=== PATIENT | female | born 1995 | race Hispanic/Latino ===

== ENCOUNTER → 2017-11-09 | Outpatient (CLI) | payer OTHER | END | disposition home or self-care (01) | LOC: RAH 12:51 | PROVIDERS: ATTEND Internal Medicine | DX: R51 Headache (principal) | CPT/HCPCS: 70551 ==

== ENCOUNTER 2018-09-19 11:28 | Emergency (ER) | payer OTHER ==
[2018-09-19 12:19] LABS: BASOPHILS % (AUTO) 0.4 % (0.0-5.0); EOSINOPHILS % (AUTO) 0.4 % (0.0-8.0); HEMATOCRIT 40.5 % (36-48); LYMPHOCYTES % (AUTO) 27.3 % (21.0-51.0); MEAN CORPUSCULAR HEMOGLOBIN 28.9 pg (27.0-33.0); MEAN CORPUSCULAR HGB CONC 33.6 g/dL (32.0-36.0); MEAN CORPUSCULAR VOLUME 85.8 fL (79-99); MONOCYTES % (AUTO) 9.6 % (3.0-13.0); NEUTROPHILS % (AUTO) 62.3 % (40.0-77.0); PLATELET COUNT (AUTO) 281 K/uL (130-400); RED BLOOD CELL COUNT(AUTO) 4.71 MIL/uL (4.00-5.50); RED CELL DISTRIBUTION WIDTH 13.7 % (11.0-15.5); WHITE BLOOD COUNT (AUTO) 8.2 K/uL (4.8-10.8)
[2018-09-19 12:26] LABS: CREATININE 0.8 mg/dL (0.5-1.5); POTASSIUM 4.3 mmol/L (3.5-5.1)
[2018-09-19 12:30] LABS: HCG,QUAL RESULT NEGATIVE (NEGATIVE)
[2018-09-19 12:31] LABS: ALBUMIN 3.6 g/dL (3.5-5.0); BILIRUBIN,TOTAL 0.2 mg/dL (0.2-1.0); TOTAL PROTEIN, SERUM 8.2 g/dL (6.0-8.3)
[2018-09-19 12:34] LABS: APPEARANCE,URINE Clear (CLEAR); BILIRUBIN,URINE Negative (NEGATIVE); COLOR,URINE Yellow (YELLOW); GLUCOSE, URINE (UA) Negative (NEGATIVE); KETONES,URINE Negative (NEGATIVE); LEUKOCYTE ESTERASE ,URINE Small (NEGATIVE); NITRATE,URINE Negative (NEGATIVE); OCCULT BLOOD,URINE Negative (NEGATIVE); PROTEIN,URINE Negative (NEGATIVE); UROBILINOGEN,URINE 0.2 mg/dL (0.2-1.0)
[2018-09-19 12:38] LABS: BACTERIA,URINE Rare /HPF (None Seen); RBC,URINE 0-1 /HPF (0-1); SQUAMOUS EPITHELIAL CELL,UR Few /HPF (0-2); WBC,URINE 0-1 /HPF (0-1)
[2018-09-19] MEDS ORDERED: HYDROXYZINE HCL 25 MG TABLET ONE (12:42)
[2018-09-19 12:52] LABS: AMPHET/METH SCREEN,URINE NEGATIVE (NEGATIVE); BARBITURATE SCREEN, URINE NEGATIVE (NEGATIVE); BENZODIAZEPINES SCREEN,URINE NEGATIVE (NEGATIVE); CANNABINOID SCREEN,URINE NEGATIVE (NEGATIVE); COCAINE SCREEN,URINE NEGATIVE (NEGATIVE); OPIATE SCREEN,URINE NEGATIVE (NEGATIVE); PHENCYCLIDINE SCREEN,URINE NEGATIVE (NEGATIVE)
== END 2018-09-19 13:41 | disposition home or self-care (01) ==
LOC: EDH 11:28
DX: F41.0 Panic disorder [episodic paroxysmal anxiety] (principal); R20.2 Paresthesia of skin; R11.0 Nausea
CPT/HCPCS: 36415; 70450; 80053; 80305; 81001; 81025; 84484; 85025; 93005

== ENCOUNTER 2019-04-11 12:58 | Emergency (ER) | payer OTHER ==
[2019-04-11 13:24] LABS: BASOPHILS % (AUTO) 0.3 % (0.0-5.0); EOSINOPHILS % (AUTO) 0.1 % (0.0-8.0); HEMATOCRIT 38.8 % (36-48); LYMPHOCYTES % (AUTO) 21.4 % (21.0-51.0); MEAN CORPUSCULAR HEMOGLOBIN 29.6 pg (27.0-33.0); MEAN CORPUSCULAR HGB CONC 34.4 g/dL (32.0-36.0); MEAN CORPUSCULAR VOLUME 85.9 fL (79-99); MONOCYTES % (AUTO) 7.7 % (3.0-13.0); NEUTROPHILS % (AUTO) 70.5 % (40.0-77.0); PLATELET COUNT (AUTO) 256 K/uL (130-400); RED BLOOD CELL COUNT(AUTO) 4.51 MIL/uL (4.00-5.50); RED CELL DISTRIBUTION WIDTH 13.5 % (11.0-15.5); WHITE BLOOD COUNT (AUTO) 10.4 K/uL (4.8-10.8)
[2019-04-11 13:29] LABS: APPEARANCE,URINE Clear (CLEAR); BILIRUBIN,URINE Negative (NEGATIVE); COLOR,URINE Yellow (YELLOW); GLUCOSE, URINE (UA) Negative (NEGATIVE); KETONES,URINE Negative (NEGATIVE); LEUKOCYTE ESTERASE ,URINE Moderate (NEGATIVE); NITRATE,URINE Negative (NEGATIVE); OCCULT BLOOD,URINE Negative (NEGATIVE); PROTEIN,URINE Negative (NEGATIVE)
[2019-04-11 13:32] LABS: CREATININE 0.8 mg/dL (0.5-1.5); POTASSIUM 3.7 mmol/L (3.5-5.1)
[2019-04-11 13:35] LABS: AMPHET/METH SCREEN,URINE NEGATIVE (NEGATIVE); BARBITURATE SCREEN, URINE NEGATIVE (NEGATIVE); BENZODIAZEPINES SCREEN,URINE NEGATIVE (NEGATIVE); CANNABINOID SCREEN,URINE NEGATIVE (NEGATIVE); COCAINE SCREEN,URINE NEGATIVE (NEGATIVE); OPIATE SCREEN,URINE NEGATIVE (NEGATIVE); PHENCYCLIDINE SCREEN,URINE NEGATIVE (NEGATIVE)
[2019-04-11 13:39] LABS: ALBUMIN 3.3 g/dL (3.5-5.0); BILIRUBIN,TOTAL 0.4 mg/dL (0.2-1.0); TOTAL PROTEIN, SERUM 7.6 g/dL (6.0-8.3)
[2019-04-11 14:33] LABS: BACTERIA,URINE Few /HPF (None Seen); MUCUS,URINE Rare LPF (None Seen); RBC,URINE 0-1 /HPF (0-1); SQUAMOUS EPITHELIAL CELL,UR Few /HPF (0-2)
== END 2019-04-11 15:48 | disposition home or self-care (01) ==
LOC: EDH 12:58
DX: O23.11 Infections of bladder in pregnancy, first trimester (principal); Z3A.01 Less than 8 weeks gestation of pregnancy
CPT/HCPCS: 36415; 76801; 80053; 80305; 81001; 81025; 84702; 85025

== ENCOUNTER 2019-06-09 19:54 | Emergency (ER) | payer MEDICAID ==
[2019-06-09 20:37] LABS: APPEARANCE,URINE Clear (CLEAR); BILIRUBIN,URINE Negative (NEGATIVE); COLOR,URINE Yellow (YELLOW); GLUCOSE, URINE (UA) Negative (NEGATIVE); KETONES,URINE Negative (NEGATIVE); LEUKOCYTE ESTERASE ,URINE Trace (NEGATIVE); NITRATE,URINE Negative (NEGATIVE); OCCULT BLOOD,URINE Negative (NEGATIVE); PH,URINE 6.5 (5.0-8.0); PROTEIN,URINE Negative (NEGATIVE)
[2019-06-09 20:46] LABS: RBC,URINE 0-1 /HPF (0-1)
[2019-06-09 20:47] LABS: BACTERIA,URINE Few /HPF (None Seen); SQUAMOUS EPITHELIAL CELL,UR 0-2 /HPF (0-2)
== END 2019-06-09 21:02 | disposition home or self-care (01) ==
LOC: EDH 19:54
DX: O23.32 Infections of other parts of urinary tract in pregnancy, second trimester (principal); Z3A.15 15 weeks gestation of pregnancy
CPT/HCPCS: 81001

== ENCOUNTER 2019-08-21 14:55 | Observation (INO) | payer MEDICAID ==
[~2019-08-21] VITALS: Ht 172.7 cm; Wt 156.5 kg
[2019-08-21 15:36] LABS: APPEARANCE,URINE CLOUDY (CLEAR); BILIRUBIN,URINE NEGATIVE (NEGATIVE); COLOR,URINE YELLOW (YELLOW); GLUCOSE, URINE (UA) NEGATIVE (NEGATIVE); KETONES,URINE 5 mg/dL (NEGATIVE); LEUKOCYTE ESTERASE ,URINE MODERATE (NEGATIVE); NITRATE,URINE NEGATIVE (NEGATIVE); OCCULT BLOOD,URINE NEGATIVE (NEGATIVE); PROTEIN,URINE TRACE mg/dL (NEGATIVE); UROBILINOGEN,URINE 0.2 mg/dL (0.2-1.0)
[2019-08-21 16:00] LABS: BACTERIA,URINE Moderate /HPF (None Seen); MUCUS,URINE Moderate LPF (None Seen); SQUAMOUS EPITHELIAL CELL,UR Many /HPF (0-2)
== END 2019-08-21 16:41 | disposition home or self-care (01) ==
LOC: LDH 14:55
PROVIDERS: ADMIT Obstetrics & Gynecology; ATTEND Obstetrics & Gynecology
DX: O36.8130 Decreased fetal movements, third trimester, not applicable or unspecified (principal); Z3A.24 24 weeks gestation of pregnancy
CPT/HCPCS: 76819; 81001; G0378

== ENCOUNTER 2019-11-23 17:31 | Inpatient (IN) | payer OTHER, MEDICAID ==
[~2019-11-23] VITALS: Ht 172.7 cm; Wt 158.8 kg
[2019-11-23] MEDS ORDERED: LACTATED RINGERS 1000ML 1,000 ML IV PRN (17:55)
[2019-11-23] MEDS ORDERED: NALOXONE HCL 0.4 MG/1 ML ML IV PRN (18:00)
[2019-11-23] MEDS ORDERED: ROPIVACAINE 0.2% 100ML VIAL 100 ML EP SCH (18:00)
[2019-11-23] MEDS ORDERED: LACTATED RINGERS 500 ML 500 ML IV PRN (18:00)
[2019-11-23] MEDS ORDERED: DINOPROSTONE 10 MG VAGINAL SUPP VG SCH (18:00)
[2019-11-23] MEDS ORDERED: EPHEDRINE SULFATE 50 MG/ML AMPULE IVP PRN (18:00)
[2019-11-23 18:28] LABS: APPEARANCE,URINE Cloudy (CLEAR); BILIRUBIN,URINE Negative (NEGATIVE); COLOR,URINE Yellow (YELLOW); GLUCOSE, URINE (UA) Negative (NEGATIVE); KETONES,URINE 40 mg/dL (NEGATIVE); LEUKOCYTE ESTERASE ,URINE Moderate (NEGATIVE); NITRATE,URINE Negative (NEGATIVE); OCCULT BLOOD,URINE Negative (NEGATIVE); PH,URINE 5.5 (5.0-8.0); PROTEIN,URINE Trace mg/dL (NEGATIVE)
[2019-11-23 18:35] LABS: BACTERIA,URINE Few /HPF (None Seen); SQUAMOUS EPITHELIAL CELL,UR Rare /HPF (0-2); WBC,URINE 26-50 /HPF (0-1)
[2019-11-23 18:36] LABS: BASOPHILS % (AUTO) 0.1 % (0.0-5.0); EOSINOPHILS % (AUTO) 0.1 % (0.0-8.0); HEMATOCRIT 37.5 % (36-48); LYMPHOCYTES % (AUTO) 12.1 % (21.0-51.0); MEAN CORPUSCULAR HEMOGLOBIN 29.7 pg (27.0-33.0); MEAN CORPUSCULAR HGB CONC 33.9 g/dL (32.0-36.0); MEAN CORPUSCULAR VOLUME 87.8 fL (79-99); NEUTROPHILS % (AUTO) 81.3 % (40.0-77.0); PLATELET COUNT (AUTO) 279 K/uL (130-400); RED BLOOD CELL COUNT(AUTO) 4.27 MIL/uL (4.00-5.50); RED CELL DISTRIBUTION WIDTH 13.4 % (11.0-15.5); WHITE BLOOD COUNT (AUTO) 14.1 K/uL (4.8-10.8)
[2019-11-23] MEDS: PROMETHAZINE HCL 25 MG/ML 1ML AMPULE IM PRN (20:58)
[2019-11-23] MEDS: MEPERIDINE-PF 50 MG/ML SYG IVP PRN (20:59)
[2019-11-24] MEDS ORDERED: OXYTOCIN 10 USP UNITS/ML 20 UNIT in LACTATED RINGERS 1000ML 1,000 ML IV SCH (06:00)
[2019-11-24] MEDS ORDERED: OXYTOCIN-LR 20 UNITS/1000 ML 1,000 ML IV ONE (07:00)
[2019-11-24] MEDS ORDERED: AMPICILLIN 2GM+NS 100ML 100 ML IV ONE (07:06)
[2019-11-24] MEDS ORDERED: AMPICILLIN 2GM+NS 100ML 100 ML IV SCH (08:00)
[2019-11-24] MEDS ORDERED: ACETAMINOPHEN EXTRA STRENGTH 500 MG TABLET ONE (08:58)
[2019-11-24] MEDS ORDERED: ACETAMINOPHEN EXTRA STRENGTH 500 MG TABLET PO SCH (09:00)
[2019-11-24] MEDS: CLINDAMYCIN 900 MG/D5% WATER 50 ML IV SCH ×3 (09:37→22:07)
[2019-11-24] MEDS ORDERED: GENTAMICIN 80 MG/NS 100 ML PB 100 ML IV SCH ×2 (10:00→10:15)
[2019-11-24] MEDS ORDERED: CEFAZOLIN SODIUM 1 GM VIAL ONE (10:16)
[2019-11-24] MEDS ORDERED: LACTATED RINGERS 1000ML 1,000 ML IV SCH (10:30)
[2019-11-24] MEDS ORDERED: CEFAZOLIN SODIUM 1 GM VIAL IVP PRN (10:30)
[2019-11-24] MEDS ORDERED: AMPICILLIN 1GM+NS 50ML 50 ML IV SCH (11:00)
[2019-11-24] MEDS ORDERED: DURAMORPH PF1 MG/ML 10ML AMP IV ONE (11:29)
[2019-11-24] MEDS ORDERED: MEPERIDINE-PF 25 MG/ML SYG ONE (11:43)
[2019-11-24] MEDS ORDERED: CALDOLOR 800MG+NS 250ML 250 ML IV ONE (12:21)
[2019-11-24] MEDS ORDERED: PROMETHAZINE HCL 25 MG/ML 1ML AMPULE IM PRN (12:45)
[2019-11-24] MEDS ORDERED: MEPERIDINE-PF 75 MG/ML SYG IM PRN (12:45)
[2019-11-24] MEDS ORDERED: SODIUM CHLORIDE 0.9% 10 ML VIAL IVP PRN (12:45)
[2019-11-24] MEDS ORDERED: DEXTROSE 5 %-0.45 % NACL 1,000 ML IV PRN (12:45)
[2019-11-24] MEDS ORDERED: OXYTOCIN-LR 20 UNITS/1000 ML 1,000 ML IV PRN (12:45)
[2019-11-24 13:30] VITALS: BP 128/74
[2019-11-24] MEDS ORDERED: GENTAMICIN PROTOCOL PER PHARMACY IV SCH (13:45)
[2019-11-24] MEDS ORDERED: PREN-196 PO (13:47)
[2019-11-24] MEDS: AMPICILLIN 2GM+NS 100ML 100 ML IV SCH ×3 (13:59→20:14)
[2019-11-24 16:42] VITALS: BP 114/66
[2019-11-24 20:13] VITALS: BP 113/66
[2019-11-24] MEDS: CALDOLOR 800MG+NS 250ML 250 ML IV SCH (20:51)
[2019-11-24] MEDS: GENTAMICIN 80 MG/NS 100 ML PB 100 ML IV SCH (23:16)
[2019-11-25] VITALS (7 sets, daily range): BP systolic 100–123; BP diastolic 42–92
[2019-11-25] MEDS: MEPERIDINE-PF 50 MG/ML SYG IVP PRN ×2 (00:18→02:14)
[2019-11-25] MEDS: AMPICILLIN 2GM+NS 100ML 100 ML IV SCH ×4 (02:01→20:57)
[2019-11-25] MEDS ORDERED: MEPERIDINE-PF 25 MG/ML SYG ONE (02:07)
[2019-11-25] MEDS: PROMETHAZINE HCL 25 MG/ML 1ML AMPULE IM PRN (02:15)
[2019-11-25] MEDS: CLINDAMYCIN 900 MG/D5% WATER 50 ML IV SCH ×4 (03:41→23:33)
[2019-11-25] MEDS: CALDOLOR 800MG+NS 250ML 250 ML IV SCH (04:30)
[2019-11-25] MEDS ORDERED: DIPH,PERTUSS(ACELL),TET VAC/PF 0.5 ML VIAL IM ONE (05:45)
[2019-11-25] MEDS: GENTAMICIN 80 MG/NS 100 ML PB 100 ML IV SCH ×3 (06:36→22:09)
--- NOTE | 2019-11-25 06:45 | NUR ---
KELLY TANG DC'Raymundo, PT INST TO CALL FOR ASSIST BEFORE GETTING OUT OF BED, VERBALIZED UNDERSTANDING. Addendum: 11/25/19 at 0654 by NAOMI ALMANZAR RN RN Amended: Links added.
[2019-11-25 06:47] LABS: HEMATOCRIT 33.1 % (36-48); MEAN CORPUSCULAR HEMOGLOBIN 29.9 pg (27.0-33.0); MEAN CORPUSCULAR HGB CONC 33.8 g/dL (32.0-36.0); MEAN CORPUSCULAR VOLUME 88.5 fL (79-99); RED BLOOD CELL COUNT(AUTO) 3.74 MIL/uL (4.00-5.50); RED CELL DISTRIBUTION WIDTH 13.4 % (11.0-15.5); WHITE BLOOD COUNT (AUTO) 24.8 K/uL (4.8-10.8)
--- NOTE | 2019-11-25 07:45 | NUR ---
PATIENT HAD PERICARE DONE AND RUBRA IS SMALL. PERIPADS CHANGED AND UNDERWEAR APPLIED AND BINDER. PATIENT ASSISTED UP TO CHAIR AND TOLERATED ACTIVITY WELL. ABDOMINAL DRESSING WAS REMOVED AND SPEEDY LEFT OPEN TO AIR. NO DRAINAGE NOTED TO SITE.
[2019-11-25 08:10] LABS: HEPATITIS Bs ANTIGEN SCREEN P Negative (Negative)
[2019-11-25] MEDS ORDERED: BISACODYL 10 MG SUPP.RECT RC PRN (09:00)
[2019-11-25] MEDS ORDERED: HYDROCODONE/ACETAMINOPHEN 5/325 MG TAB PO PRN (09:00)
[2019-11-25] MEDS ORDERED: ACETAMINOPHEN EXTRA STRENGTH 500 MG TABLET PO PRN (09:00)
[2019-11-25] MEDS ORDERED: LANOLIN 30GM OINTMENT TP PRN (09:00)
[2019-11-25] MEDS: SIMETHICONE 80 MG TAB.CHEW PO PRN ×3 (09:15→20:57)
[2019-11-25] MEDS: DOCUSATE SODIUM 100 MG CAP PO SCH ×2 (09:15→20:57)
--- NOTE | 2019-11-25 13:00 | NUR ---
DR. HALLMAN ROUNDED AND INDICATED NEED TO KEEP PATIENT FOR CONTINUED ANTIBIOTICS. PATIENT UP AND AMBULATED IN HALLWAY AFTER SEEN AND WENT TO VISIT WITH BABY IN NURSERY.
[2019-11-25] MEDS: IBUPROFEN 800 MG TAB PO SCH ×2 (13:45→20:58)
--- NOTE | 2019-11-25 15:00 | NUR ---
PATIENT UP AND AMBULATING IN HALLWAY. TOLERATING ACTIVITY WELL.
--- NOTE | 2019-11-25 18:30 | NUR ---
BACK TO BED AND RESTING AFTER DINNER. ENCOURAGED TO WALK IN HALLWAY BEFORE GOING TO BED TONIGHT. INDICATED UNDERSTANDING. STATES PASSING GAS.
--- NOTE | 2019-11-25 19:50 | NUR ---
Activity: Patient up to the bathroom herself. Back to bed at 1999 no complaints of pain. IV of D5 1/2 NS infusing at KVO rate. Plan of care discussed with patient, verbalizes understanding. Physical assessment done. Both upper extremities are slightly swollen.
--- NOTE | 2019-11-25 22:05 | NUR ---
Activity: Patient visited baby in the nursery, ambulating alone denies any pain.
--- NOTE | 2019-11-25 23:30 | NUR ---
PATIENT; PATIENT BACK TO HER ROOM.
[2019-11-26 02:56] VITALS: BP 122/62
[2019-11-26] MEDS: AMPICILLIN 2GM+NS 100ML 100 ML IV SCH ×4 (03:05→21:18)
[2019-11-26] MEDS: ACETAMINOPHEN-CODEINE 300/30MG TAB PO PRN ×2 (03:12→09:21)
[2019-11-26] MEDS: IBUPROFEN 800 MG TAB PO SCH ×3 (04:43→21:18)
[2019-11-26] MEDS: CLINDAMYCIN 900 MG/D5% WATER 50 ML IV SCH ×4 (05:11→23:41)
[2019-11-26] MEDS: GENTAMICIN 80 MG/NS 100 ML PB 100 ML IV SCH ×3 (06:13→22:34)
[2019-11-26 07:23] VITALS: BP 103/62
--- NOTE | 2019-11-26 09:00 | NUR ---
PATIENT UP AND HAS REMAINED AFEBRILE. C/O SOME PAIN AND WAS MEDICATED WITH TYENOL #3 X 2 TABS. PATIENT AMBULATED IN HALLWAY AND WENT TO VISIT WITH BABY IN NURSERY.
[2019-11-26] MEDS: DOCUSATE SODIUM 100 MG CAP PO SCH ×2 (09:17→21:18)
[2019-11-26] MEDS: SIMETHICONE 80 MG TAB.CHEW PO PRN ×3 (09:18→21:18)
[2019-11-26 11:30] VITALS: BP 103/66
--- NOTE | 2019-11-26 12:15 | NUR ---
DR. HALLMAN ROUNDED AND INDICATED NEED FOR PATIENT TO STAY FOR CONTINUED ANTIBIOTICS. CBC TO BE DONE IN A.M.
--- NOTE | 2019-11-26 15:30 | NUR ---
PATIENT WENT TO VISIT WITH BABY IN NURSERY AND WALKED IN HALLWAY. STATES PASSING GAS BUT NO BM. REFUSED PRUNE JUICE.
[2019-11-26 16:26] VITALS: BP 123/58
--- NOTE | 2019-11-26 19:30 | NUR ---
REPORT GIVEN TO JEANCARLOS LIU RN IN L/D AND PATIENT CARE TRANSFERED AT THIS TIME.
[2019-11-26 19:53] VITALS: BP 119/56
--- NOTE | 2019-11-26 21:15 | NUR ---
Patient sleeping, but awakens while in room. No signs of distress noted. Patient informed of medications (Colace, Simethicone, Ampicillin, Ibuprofen) to be administered. Patient verbalizes understanding and able to teach back meds and indicated uses. Addendum: 11/26/19 at 8314 by JEANCARLOS LIU RN RN Amended: Links added.
--- NOTE | 2019-11-26 23:00 | NUR ---
NURSERY VISIT Patient ambulated to nursery to visit with . Steady gait noted and patient in no apparent distress. Patient returned to her room at approximately 2335 and remains sitting at edge of her bed watching television.
[2019-11-26 23:47] VITALS: BP 129/64
[2019-11-27] MEDS: AMPICILLIN 2GM+NS 100ML 100 ML IV SCH ×2 (03:13→09:56)
--- NOTE | 2019-11-27 04:30 | NUR ---
NURSERY VISIT Patient ambulating to nursery. Steady gait noted and patient in no apparent distress. Patient visiting in nursery for infant feeding.
[2019-11-27] MEDS: CLINDAMYCIN 900 MG/D5% WATER 50 ML IV SCH (05:13)
[2019-11-27] MEDS: IBUPROFEN 800 MG TAB PO SCH (05:13)
--- NOTE | 2019-11-27 05:13 | NUR ---
MEDS Patient remains in nursery feeding and bonding with infant. Med teaching done. Patient verbalizes understanding and scheduled medications administered. Patient voices no concerns at this time. Patient denies any pain or discomfort.
--- NOTE | 2019-11-27 05:29 | NUR ---
Pt in nursery visiting baby. No signs of distress noted. Addendum: 11/27/19 at 0530 by JEANCARLOS LIU RN RN Amended: Links added.
[2019-11-27] MEDS: GENTAMICIN 80 MG/NS 100 ML PB 100 ML IV SCH (05:54)
[2019-11-27 05:59] VITALS: BP 131/64
--- NOTE | 2019-11-27 05:59 | NUR ---
Patient back in her room. Sitting up in bed watching television. Patient voices no concerns at this time. Patient states she will get up to shower in a little while. Fresh ice water provided and new gown, socks and mesh panties provided. Addendum: 11/27/19 at 0614 by JEANCARLOS LIU RN RN Amended: Links added.
[2019-11-27 06:45] LABS: BASOPHILS % (AUTO) 0.2 % (0.0-5.0); EOSINOPHILS % (AUTO) 0.2 % (0.0-8.0); HEMATOCRIT 32.3 % (36-48); LYMPHOCYTES % (AUTO) 18.7 % (21.0-51.0); MEAN CORPUSCULAR HEMOGLOBIN 29.3 pg (27.0-33.0); MEAN CORPUSCULAR HGB CONC 33.1 g/dL (32.0-36.0); MEAN CORPUSCULAR VOLUME 88.5 fL (79-99); MONOCYTES % (AUTO) 8.9 % (3.0-13.0); NEUTROPHILS % (AUTO) 71.3 % (40.0-77.0); PLATELET COUNT (AUTO) 263 K/uL (130-400); RED BLOOD CELL COUNT(AUTO) 3.65 MIL/uL (4.00-5.50); RED CELL DISTRIBUTION WIDTH 13.9 % (11.0-15.5); WHITE BLOOD COUNT (AUTO) 13.3 K/uL (4.8-10.8)
--- NOTE | 2019-11-27 07:17 | NUR ---
REPORT Report given to Sharri Cat RN to assume patient care at this time.
[2019-11-27 07:20] VITALS: BP 115/59
[2019-11-27] MEDS: DOCUSATE SODIUM 100 MG CAP PO SCH (09:08)
[2019-11-27] MEDS: SIMETHICONE 80 MG TAB.CHEW PO PRN (09:08)
--- NOTE | 2019-11-27 11:50 | NUR ---
DISCHARGE PT LEFT UNIT VIA WHEELCHAIR, WITH BABY IN ARMS, ACCOMPANIED BY SIGNIFICANT OTHER. DENIED PAIN AND HAD NO COMPLAINTS. BABY STRAPPED IN CAR SEAT. PT AND BABY TRANSPORTED BY PERSONAL VEHICLE.
== END 2019-11-27 11:50 | disposition home or self-care (01) | DRG 786 ==
LOC: LDH 17:31 → WSH 11-24 13:30
PROVIDERS: ADMIT Obstetrics & Gynecology; ATTEND Obstetrics & Gynecology
PROC: 10D00Z1 Extraction of Products of Conception, Low, Open Approach (ICD-10-PCS; principal; 2019-11-23)
PROC: 3E0234Z Introduction of Serum, Toxoid and Vaccine into Muscle, Percutaneous Approach (ICD-10-PCS; 2019-11-23)
DX: O35.8XX0 Maternal care for other (suspected) fetal abnormality and damage, not applicable or unspecified (principal); O41.1230 Chorioamnionitis, third trimester, not applicable or unspecified; O99.214 Obesity complicating childbirth; O62.2 Other uterine inertia; E66.01 Morbid (severe) obesity due to excess calories; O75.89 Other specified complications of labor and delivery; D72.829 Elevated white blood cell count, unspecified; Z3A.39 39 weeks gestation of pregnancy; Z37.0 Single live birth; Z23 Encounter for immunization
CPT/HCPCS: 36415; 59510; 76805; 81001; 85025; 85027; 86592; 86850; 86900; 86901; 87088; 87340; 90715; A4314; A4344; G0378; J0290; J0690; J1580; J1741; J2175; J2274; J2550; J2590; J2795; J3490; J7120

== ENCOUNTER 2020-08-08 10:18 | Emergency (ER) | payer MEDICAID, OTHER ==
[~2020-08-08 10:18] MED LIST: PREN-196 PO
[2020-08-08 10:58] LABS: APPEARANCE,URINE Cloudy (CLEAR); BILIRUBIN,URINE Negative (NEGATIVE); COLOR,URINE Yellow (YELLOW); GLUCOSE, URINE (UA) Negative (NEGATIVE); KETONES,URINE Trace mg/dL (NEGATIVE); LEUKOCYTE ESTERASE ,URINE Moderate (NEGATIVE); NITRATE,URINE Negative (NEGATIVE); OCCULT BLOOD,URINE Negative (NEGATIVE); PH,URINE 5.5 (5.0-8.0); PROTEIN,URINE Negative (NEGATIVE); UROBILINOGEN,URINE 0.2 mg/dL (0.2-1.0)
[2020-08-08 11:09] LABS: HCG,QUAL RESULT NEGATIVE (NEGATIVE)
[2020-08-08 11:09] LABS: BASOPHILS % (AUTO) 0.1 % (0.0-5.0); EOSINOPHILS % (AUTO) 0.1 % (0.0-8.0); HEMATOCRIT 43.3 % (36-48); LYMPHOCYTES % (AUTO) 24.9 % (21.0-51.0); MEAN CORPUSCULAR HEMOGLOBIN 27.9 pg (27.0-33.0); MEAN CORPUSCULAR HGB CONC 32.6 g/dL (32.0-36.0); MEAN CORPUSCULAR VOLUME 85.7 fL (79-99); MONOCYTES % (AUTO) 9.6 % (3.0-13.0); NEUTROPHILS % (AUTO) 65.1 % (40.0-77.0); PLATELET COUNT (AUTO) 227 K/uL (130-400); RED BLOOD CELL COUNT(AUTO) 5.05 MIL/uL (4.00-5.50); WHITE BLOOD COUNT (AUTO) 8.9 K/uL (4.8-10.8)
[2020-08-08] MEDS ORDERED: KETOROLAC TROMETHAMINE 15MG/ML ONE (11:11)
[2020-08-08 11:17] LABS: CREATININE 0.8 mg/dL (0.5-1.5); POTASSIUM 4.4 mmol/L (3.5-5.1)
[2020-08-08 11:22] LABS: ALBUMIN 3.6 g/dL (3.5-5.0); BILIRUBIN,TOTAL 0.3 mg/dL (0.2-1.0); TOTAL PROTEIN, SERUM 8.1 g/dL (6.0-8.3)
[2020-08-08] MEDS ORDERED: IOHEXOL-350 75 ML VIAL IV ONE (11:25)
[2020-08-08 11:48] LABS: RBC,URINE None Seen /HPF (0-1)
[2020-08-08 11:49] LABS: BACTERIA,URINE Many /HPF (None Seen)
[2020-08-08 11:50] LABS: MUCUS,URINE Moderate LPF (None Seen); SQUAMOUS EPITHELIAL CELL,UR Moderate /HPF (0-2)
== END 2020-08-08 14:07 | disposition home or self-care (01) ==
LOC: EDH 10:18
DX: U07.1 COVID-19 (principal); N39.0 Urinary tract infection, site not specified; Z98.890 Other specified postprocedural states
CPT/HCPCS: 36415; 74177; 80053; 81001; 81025; 85025; 87088; 87426; 96374; 99285; J1885; Q9967

== ENCOUNTER 2024-03-09 17:31 | Emergency (ER) | payer MEDICAID, OTHER ==
[~2024-03-09] VITALS: Ht 172.7 cm; Wt 131.5 kg
[2024-03-09 18:22] LABS: BASOPHILS # (AUTO) 0.02 K/uL (0.00-0.20); BASOPHILS % (AUTO) 0.3 % (0.0-5.0); EOSINOPHILS # (AUTO) 0.05 K/uL (0.00-0.70); EOSINOPHILS % (AUTO) 0.7 % (0.0-8.0); HEMATOCRIT 40.7 % (36-48); IMMATURE GRANULOCYTE ABSOLUTE 0.02 K/uL (0-1); LYMPHOCYTES % (AUTO) 26.4 % (21.0-51.0); MEAN CORPUSCULAR HGB CONC 33.4 g/dL (32.0-36.0); MEAN CORPUSCULAR VOLUME 89.8 fL (79-99); MONOCYTES # (AUTO) 0.7 K/uL (0.1-1.0); MONOCYTES % (AUTO) 8.6 % (3.0-13.0); NEUTROPHILS # (AUTO) 4.9 K/uL (1.8-7.7); NEUTROPHILS % (AUTO) 63.7 % (40.0-77.0); PLATELET COUNT (AUTO) 228 K/uL (130-400); RED BLOOD CELL COUNT(AUTO) 4.53 MIL/uL (4.00-5.50); RED CELL DISTRIBUTION WIDTH 12.3 % (11.0-15.5); WHITE BLOOD COUNT (AUTO) 7.6 K/uL (4.8-10.8)
[2024-03-09 18:31] LABS: CREATININE 0.7 mg/dL (0.5-1.0); POTASSIUM 4.1 mmol/L (3.5-5.1)
[2024-03-09 18:49] LABS: APPEARANCE,URINE CLEAR (CLEAR); BILIRUBIN,URINE NEGATIVE (NEGATIVE); COLOR,URINE YELLOW (YELLOW); GLUCOSE, URINE (UA) NEGATIVE (NEGATIVE); KETONES,URINE NEGATIVE (NEGATIVE); LEUKOCYTE ESTERASE ,URINE NEGATIVE Leu/uL (NEGATIVE); NITRATE,URINE NEGATIVE (NEGATIVE); PROTEIN,URINE 20 mg/dL (NEGATIVE); UROBILINOGEN,URINE 3 mg/dL (0.2-1.0)
[2024-03-09 18:51] LABS: ADD UA MICROSCOPIC YES
[2024-03-09 18:52] LABS: B-TYPE NATRIURETIC PEPTIDE 7 pg/mL (0-100)
[2024-03-09 18:55] LABS: MUCUS,URINE RARE LPF (None Seen); RBC,URINE 0-1 /HPF (0-1); SQUAMOUS EPITHELIAL CELL,UR FEW /HPF (0-2); WBC,URINE 0-1 /HPF (0-1)
[2024-03-09] MEDS: ONDANSETRON 4MG INJ IVP ONE (19:18)
[2024-03-09] MEDS: 0.9%NACL 1000ML 1,000 ML IV ONE (19:18)
[2024-03-09] MEDS: acetaMINOPHEN 500 MG TABLET PO ONE (19:18)
[2024-03-09 19:40] VITALS: BP 128/64; PULSE 115; RESP 18; O2SAT 99
[2024-03-09] MEDS ORDERED: KETOROLAC 30MG VIAL (30MG/ML) IVP ONE (20:30)
[2024-03-09] MEDS ORDERED: DiphenhydrAMINE HCL 50 MG/ML VIAL IM ONE (20:30)
[2024-03-09] MEDS ORDERED: METOCLOPRAMIDE 10 MG/2 ML VIAL IVP ONE (20:30)
[2024-03-09 20:31] LABS: ALBUMIN 3.6 g/dL (3.5-5.0); BILIRUBIN,DIRECT 0.1 mg/dL (0.0-0.3); BILIRUBIN,TOTAL 0.4 mg/dL (0.2-1.0); TOTAL PROTEIN, SERUM 7.4 g/dL (6.0-8.3)
== END 2024-03-09 21:06 | disposition home or self-care (01) ==
LOC: EDH 17:31
DX: R51.9 Headache, unspecified (principal); R07.89 Other chest pain; R11.2 Nausea with vomiting, unspecified
CPT/HCPCS: 99285; 96374; 70450; 71045; 96361; 82550; 80076; 84484 ×2; 80048; 83880; 85025; 81001; 81025; 36415; 93005; J7030; J2405